=== PATIENT | female | born 1990 | race Caucasian/White ===

== ENCOUNTER 2018-03-14 23:20 | Outpatient (CLI) | payer OTHER | END 2018-03-15 02:10 | disposition home or self-care (01) | LOC: OBT 23:20 → L-D 23:23 → OBT 03-15 02:10 | DX: O26.892 Other specified pregnancy related conditions, second trimester (principal); R10.32 Left lower quadrant pain; Z3A.25 25 weeks gestation of pregnancy | CPT/HCPCS: 76815; 76817 ==